=== PATIENT | male | born 1955 | race Caucasian/White ===

== ENCOUNTER 2017-09-05 06:24 | Day surgery (SDC) | payer OTHER ==
[~2017-09-05] VITALS: Ht 177.8 cm; Wt 86.6 kg
[~2017-09-05 06:24] MED LIST: KRILL OIL300 MG PO; LISINOPRIL20 M1 PO; SIMVASTATIN20 MG PO; SLO-MAG PO
[2017-09-05] MEDS ORDERED: AMLODIPINE5 MG PO (07:44)
[2017-09-05] MEDS ORDERED: PERCOCET 5/325M1 TAB PO (10:58)
[2017-09-05 13:02] VITALS: BP 170/78
== END 2017-09-05 11:48 | disposition home or self-care (01) | DRG 355 ==
LOC: ORM 06:24
PROVIDERS: ATTEND Surgery
PROC: 0WUF4JZ Supplement Abdominal Wall with Synthetic Substitute, Percutaneous Endoscopic Approach (ICD-10-PCS; principal; 2017-09-05)
DX: K42.0 Umbilical hernia with obstruction, without gangrene (principal); E78.5 Hyperlipidemia, unspecified; I10 Essential (primary) hypertension
CPT/HCPCS: J2710